=== PATIENT | male | born 2000 | race American Indian/Alaskan Native ===

== ENCOUNTER 2019-09-16 01:33 | Inpatient (IN) | payer SELFPAY ==
[2019-09-16] MEDS ORDERED: LORazepam 2 MG/ML VIAL IV ONE ×2 (02:11→04:51)
[2019-09-16 02:14] LABS: Basophils % (Auto) 0.9 % (0.0-1.8); Eosinophils % (Auto) 0.3 % (0.0-4.3); Hematocrit 47.8 % (35.5-45.6); Hemoglobin 15.8 gm/dl (11.8-15.2); Lymphocytes # (Auto) 2.4 K/mm3 (1.2-5.4); Lymphocytes % (Auto) 43.4 % (13.4-35.0); Mean Corpuscular HGB Conc 33 % (32-34); Mean Corpuscular Volume 87 fl (84-94); Monocytes # (Auto) 0.4 K/mm3 (0.0-0.8); Monocytes % (Auto) 6.8 % (0.0-7.3); Platelet Count 303 K/mm3 (140-440); Red Blood Count 5.48 M/mm3 (3.65-5.03); Red Cell Distribution Width 15.3 % (13.2-15.2)
[2019-09-16] MEDS ORDERED: LORazepam 2 MG/ML VIAL ONE ×3 (02:14→08:08)
--- NOTE | 2019-09-16 02:16 | Emergency Department Report ---
History of Present Illness - General Chief Complaint: Overdose Stated Complaint: OVERDOSE Time Seen by Provider: 09/16/19 01:43 Source: EMS Mode of arrival: Stretcher Limitations: Altered Mental Status - History of Present Illness Initial Comments: Patient is 19 years old male, unknown past medical history. Patient brought to the emergency room via EMS for evaluation of Benadryl overdose. Patient girlfriend informed EMS that patient last time was seen normal was 10:30 PM last night. She stated that she woke up and found him agitated with altered mental status. Upon arrival to the ER, patient is agitated with obvious hallucination. Patient had a heart rate of 172, showing sinus tachycardia on EKG. Poison control immediately consulted who recommended observation for 6-8 hours. For further information please refer to the nurse notes. Patient given 2 mg of Ativan for agitation. -: Last night Intent: unwilling to say How Overdose Was Discovered: family/friend present Treatments Prior to Arrival: none - Related Data Home Medications Medication Instructions Recorded Confirmed Last Taken No Known Home Medications [No 09/16/19 09/16/19 Unknown Reported Home Medications] Allergies Allergy/AdvReac Type Severity Reaction Status Date / Time No Known Allergies Allergy Unverified 09/16/19 02:50 ED Review of Systems ROS: Stated complaint: OVERDOSE Other details as noted in HPI Comment: Unobtainable due to pts medical conditions ED Past Medical Hx - Social History Smoking Status: Unknown if ever smoked Substance Use Type: Alcohol, Other - Medications Home Medications: Home Medications Medication Instructions Recorded Confirmed Last Taken Type No Known Home Medications [No 09/16/19 09/16/19 Unknown History Reported Home Medications] ED Physical Exam - General Limitations: Altered Mental Status General appearance: alert, anxious, other (agitated) - Head Head exam: Present: atraumatic, normocephalic, normal inspection - Eye Eye exam: Present: normal appearance, PERRL - ENT ENT exam: Present: mucous membranes dry - Neck Neck exam: Present: normal inspection, full ROM. Absent: tenderness, meningismus, lymphadenopathy, thyromegaly - Respiratory Respiratory exam: Present: normal lung sounds bilaterally - Cardiovascular Cardiovascular Exam: Present: tachycardia - GI/Abdominal GI/Abdominal exam: Present: soft, normal bowel sounds. Absent: distended, tenderness, guarding, rebound, rigid, mass, bruit, pulsatile mass, hernia - Extremities Exam Extremities exam: Present: normal inspection, full ROM, normal capillary refill. Absent: tenderness, pedal edema, joint swelling, calf tenderness - Back Exam Back exam: Present: normal inspection, full ROM. Absent: CVA tenderness (R), CVA tenderness (L), muscle spasm, paraspinal tenderness, vertebral tenderness - Neurological Exam Neurological exam: Present: alert, altered, CN II-XII intact, reflexes normal. Absent: motor sensory deficit - Psychiatric Psychiatric exam: Present: anxious - Skin Skin exam: Present: warm, intact, normal color ED Course Vital Signs 09/16/19 09/16/19 09/16/19 01:45 01:46 02:00 Temperature 97.9 F Pulse Rate 171 H 175 H 164 H Respiratory 28 H 26 H 18 Rate Blood Pressure 171/94 171/94 140/91 Blood Pressure [Left] O2 Sat by Pulse 100 100 99 Oximetry 09/16/19 09/16/19 09/16/19 02:15 02:30 02:45 Temperature Pulse Rate 161 H 139 H 148 H Respiratory 18 24 26 H Rate Blood Pressure 143/89 160/103 146/92 Blood Pressure [Left] O2 Sat by Pulse 99 100 100 Oximetry 09/16/19 09/16/19 09/16/19 03:00 03:15 03:30 Temperature Pulse Rate 140 H 164 H 133 H Respiratory 22 15 21 Rate Blood Pressure 154/102 153/93 134/97 Blood Pressure [Left] O2 Sat by Pulse 100 99 99 Oximetry 09/16/19 09/16/19 09/16/19 03:45 04:00 04:15 Temperature Pulse Rate 163 H 167 H 169 H Respiratory 24 23 25 H Rate Blood Pressure 135/84 145/79 150/70 Blood Pressure [Left] O2 Sat by Pulse 100 100 99 Oximetry 09/16/19 09/16/19 09/16/19 04:31 04:45 05:00 Temperature Pulse Rate 167 H 157 H 138 H Respiratory 20 18 20 Rate Blood Pressure 149/86 149/86 155/93 Blood Pressure [Left] O2 Sat by Pulse 98 99 99 Oximetry 09/16/19 09/16/19 09/16/19 05:15 05:31 05:45 Temperature Pulse Rate 124 H Respiratory 29 H 16 16 Rate Blood Pressure 157/123 158/109 161/101 Blood Pressure [Left] O2 Sat by Pulse 100 100 100 Oximetry 09/16/19 09/16/19 09/16/19 06:01 06:15 06:31 Temperature Pulse Rate 128 H 167 H Respiratory 20 21 36 H Rate Blood Pressure 156/96 159/97 159/97 Blood Pressure [Left] O2 Sat by Pulse 100 100 Oximetry 09/16/19 09/16/19 09/16/19 06:45 07:00 07:11 Temperature 97.6 F Pulse Rate 132 H 133 H 139 H Respiratory 15 29 H 29 H Rate Blood Pressure 151/100 154/103 154/103 Blood Pressure [Left] O2 Sat by Pulse 99 99 100 Oximetry 09/16/19 09/16/19 09/16/19 07:21 07:25 07:30 Temperature Pulse Rate 136 H 140 H 166 H Respiratory 20 20 28 H Rate Blood Pressure 154/103 154/103 Blood Pressure 154/103 [Left] O2 Sat by Pulse 100 99 95 Oximetry - Reevaluation(s) Reevaluation #1: 09/16/19 02:42 Patient evaluated by me several times. Patient still agitated but symptoms improving with heart rate coming down to 150. Patient girlfriend at bedside and she added that patient had similar episode 4 months ago and was treated at home. He stated that she does not know how much she took but she stated that they usually take Benadryl at night with alcohol. ED Medical Decision Making - Lab Data Result diagrams: 09/16/19 02:04 09/16/19 10:23 - EKG Data -: EKG Interpreted by Me EKG shows normal: sinus rhythm Rate: tachycardia - Medical Decision Making Patient is 19 years old male, unknown past medical history. Patient brought to the emergency room via EMS for evaluation of Benadryl overdose. Patient gi rlfriend informed EMS that patient last time was seen normal was 10:30 PM last night. She stated that she woke up and found him agitated with altered mental status. Upon arrival to the ER, patient is agitated with obvious hallucination. Patient had a heart rate of 172, showing sinus tachycardia on EKG. Poison control immediately consulted who recommended observation for 6-8 hours. For further information please refer to the nurse notes. Patient given 2 mg of Ativan for agitation. Patient potassium is 3.2, patient given potassium chloride IV. Patient also getting serial EKG. I discussed the patient with Dr. Sandoval, he accepted the patient to be admitted to the ICU for further management. Critical Care Time: Yes Critical care time in (mins) excluding proc time.: 30 Critical care attestation.: If time is entered above; I have spent that time in minutes in the direct care of this critically ill patient, excluding procedure time. ED Disposition Clinical Impression: Drug overdose, Altered mental status, Agitation, Sinus tachycardia Disposition: 09 OP ADMIT IP TO THIS HOSP Is pt being admited?: Yes Condition: Stable
[2019-09-16 02:29] LABS: Alanine Aminotransferase 20 units/L (7-56); Albumin 5.1 g/dL (3.9-5); BUN/Creatinine Ratio 12; Blood Urea Nitrogen 13 mg/dL (9-20); Calcium 8.9 mg/dL (8.4-10.2); Hemolysis Index 8
[2019-09-16 02:55] LABS: Alanine Aminotransferase 20 units/L (7-56); Albumin 4.9 g/dL (3.9-5)
[2019-09-16 02:56] LABS: Bilirubin,Direct < 0.2 mg/dL (0-0.2)
[2019-09-16] MEDS: POTASSIUM CHLORIDE 10 MEQ 10 MEQ/100 ML BAG IV SCH ×2 (02:59→03:50)
[2019-09-16 03:27] LABS: Bilirubin,Urine NEG (Negative); Blood,Urine NEG (Negative); Color,Urine Straw (Yellow); Protein,Urine <15 mg/dL mg/dL (Negative); Urobilinogen,Urine < 2.0 mg/dL (<2.0); WBC,Urine < 1.0 /HPF (0.0-6.0)
[2019-09-16 03:46] LABS: Amphetamine Screen,Urine PRESUMPTIVE NEGATIVE; Benzodiazepines Screen,Urine PRESUMPTIVE NEGATIVE; Cannabinoid Screen,Urine PRESUMPTIVE NEGATIVE; Cocaine Screen,Urine PRESUMPTIVE NEGATIVE; Methadone Screen,Urine PRESUMPTIVE NEGATIVE; Opiate Screen,Urine PRESUMPTIVE NEGATIVE
[2019-09-16] MEDS ORDERED: SODIUM CHLORIDE 0.9% 1000 ML 1,000 ML ONE (04:48)
[2019-09-16] MEDS ORDERED: SODIUM CHLORIDE 0.9% 1000 ML 1,000 ML IV ONE (04:51)
[2019-09-16] MEDS: SODIUM CHLORIDE 0.9% 1000 ML 1,000 ML IV SCH ×2 (06:42→15:42)
--- NOTE | 2019-09-16 07:47 | History and Physical Report ---
History of Present Illness Date of examination: 09/16/19 Date of admission: 09/16/19 04:45 Chief complaint: Altered level of comsciousness/agitation History of present illness: Patient is 19 years old male, unknown past medical history. Patient brought to the emergency room via EMS for evaluation of Benadryl overdose. Patient girlfriend informed EMS that patient last time was seen normal was 10:30 PM last night. She stated that she woke up and found him agitated with altered mental status. Upon arrival to the ER, patient is agitated with obvious hallucination. Patient had a heart rate of 172, showing sinus tachycardia on EKG. Poison control immediately consulted who recommended observation for 6-8 hours. For further information please refer to the nurse notes. Patient given 2 mg of Ativan for agitation. Past History Past Medical History: No medical history Past Surgical History: No surgical history Social history: other (unknown) Family history: no significant family history Medications and Allergies Allergies Allergy/AdvReac Type Severity Reaction Status Date / Time No Known Allergies Allergy Unverified 09/16/19 02:50 Home Medications Medication Instructions Recorded Confirmed Last Taken Type No Known Home Medications [No 09/16/19 09/16/19 Unknown History Reported Home Medications] Active Meds: Active Medications Sodium Chloride (Nacl 0.9% 1000 Ml) 1,000 mls @ 125 mls/hr IV DIRECT [facility] Last Admin: 09/16/19 06:42 Dose: 125 mls/hr Documented by: Review of Systems ROS unobtainable: due to mental status Exam - Constitutional Vitals: Temp Pulse Resp BP Pulse Ox 97.6 F 140 H 20 154/103 99 09/16/19 06:45 09/16/19 07:25 09/16/19 07:25 09/16/19 07:25 09/16/19 07:25 General appearance: Present: severe distress, cachectic, other (t achycardia,confused and agitated) - EENT Eyes: Present: PERRL, EOM intact - Neck Neck: Present: supple, normal ROM - Respiratory Respiratory effort: normal Respiratory: bilateral: diminished, negative: rales, rhonchi, wheezing - Cardiovascular Rhythm: regular Heart Sounds: Present: S1 & S2 (tachycardia) - Extremities Extremities: no ischemia, No edema - Abdominal General gastrointestinal: Present: soft, non-tender, non-distended, normal bowel sounds - Integumentary Integumentary: Present: clear, warm - Musculoskeletal Musculoskeletal: strength equal bilaterally - Psychiatric Psychiatric: agitated, other (confused/psychotic) - Neurologic Neurologic: moves all extremities Results - Labs CBC & Chem 7: 09/16/19 02:04 09/16/19 10:23 Labs: Abnormal lab results 09/16/19 09/16/19 09/16/19 Range/Units 01:51 02:04 02:04 RBC 5.48 H (3.65-5.03) M/mm3 Hgb 15.8 H (11.8-15.2) gm/dl Hct 47.8 H (35.5-45.6) % RDW 15.3 H (13.2-15.2) % Lymph % (Auto) 43.4 H (13.4-35.0) % Potassium 3.2 L (3.6-5.0) mmol/L Carbon Dioxide 17 L (22-30) mmol/L Glucose 213 H (75-100) mg/dL POC Glucose 211 H (70-105) Albumin 5.1 H (3.9-5) g/dL Salicylates (2.8-20.0) mg/dL Acetaminophen (10.0-30.0) ug/mL Plasma/Serum Alcohol (0-0.07) % 09/16/19 09/16/19 09/16/19 Range/Units 02:04 02:04 02:18 RBC (3.65-5.03) M/mm3 Hgb (11.8-15.2) gm/dl Hct (35.5-45.6) % RDW (13.2-15.2) % Lymph % (Auto) (13.4-35.0) % Potassium (3.6-5.0) mmol/L Carbon Dioxide (22-30) mmol/L Glucose (75-100) mg/dL POC Glucose (70-105) Albumin (3.9-5) g/dL Salicylates < 0.3 L (2.8-20.0) mg/dL Acetaminophen < 5.0 L (10.0-30.0) ug/mL Plasma/Serum Alcohol 0.16 H (0-0.07) % Assessment and Plan --Drug Overdose:? benadryl/alcohol ?Intentional overdose , poison control adv to observe 8 hrs to maintain calcium more than 9 Potassium more than 4 Magnesium more than 2 Monitor EKG --EKG; nonspecific ST changes Check 1 set of cardiac enzymes Cardiology consult --Possible suicidal attempt; Suicidal watch ,1013 status Psych consult --Toxic metabolic encephalopathy; Treat the underlying cause, supportive care --Metabolic acidosis; Aggressive IV hydration Sodium bicarbonate if needed --Sinus tachycardia: Sedation IV/po metoprolol --Alcohol intoxication; --Alcohol withdrawal symptoms; initiate CIWA protocol --DVT prophylaxis:Lovenox --Restrain for safety Monitor closely and adjust management as needed Critical care consult, psych consult Plan of care is reviewed with the patient's nurse No family available Critical care time 50 minutes Disposition; follow psych, follow cardiology eval and recom Discharge when medically stable ,
[2019-09-16] MEDS ORDERED: HALOPERIDOL LACTATE 5 MG/1 ML INJ IM PRN (08:07)
[2019-09-16] MEDS: LORazepam 2 MG/ML VIAL IV PRN ×11 (08:08→21:56)
[2019-09-16] MEDS: HALOPERIDOL LACTATE 5 MG/1 ML INJ IV PRN ×2 (08:10→11:41)
[2019-09-16] MEDS: LORazepam 2 MG/ML VIAL IV ONE ×2 (08:15→08:25)
[2019-09-16] MEDS ORDERED: LORazepam 2 MG/ML VIAL IV PRN (08:23)
[2019-09-16] MEDS: HALOPERIDOL LACTATE 5 MG/1 ML INJ ONE ×2 (08:24→08:41)
[2019-09-16] MEDS ORDERED: HALOPERIDOL LACTATE 5 MG/1 ML INJ IV PRN (09:00)
[2019-09-16] MEDS: FAMOTIDINE 20 MG/2 ML INJ IV SCH ×2 (09:54→21:17)
[2019-09-16] MEDS: METOPROLOL TARTRATE 25 MG TAB PO SCH ×2 (09:55→21:17)
[2019-09-16] MEDS ORDERED: PANTOPRAZOLE 40 MG INJ IV SCH (10:00)
[2019-09-16 11:04] LABS: BUN/Creatinine Ratio 14; Blood Urea Nitrogen 10 mg/dL (9-20); Calcium 8.3 mg/dL (8.4-10.2); Hemolysis Index 17
--- NOTE | 2019-09-16 11:39 | Event Note ---
Date: 09/16/19 Patient actually admitted at 10:30 PM on last night but consult placed to me this am. Patient with benadryl and ETOH overdose. Agitated. Currently on CIWA. Will continue to monitor. Unable to obtain history from patient at this time.
--- NOTE | 2019-09-16 13:56 | Consultation ---
History of Present Illness - Reason for Consult Consult date: 09/16/19 Reason for consult: Management of Mental Health - Chief Complaint Chief complaint: Altered level of comsciousness/agitation - History of Present Psychiatric Illness HPI Mr. Lawrence is a 19y/o male patient. Upon observation the patient was lying in bed with 4 point restraints. He was attempting to raise up. The patient was somnolent and unable to provide any information. Per the nurse the patient was said to have overdosed on benadryl and ETOH, stating he was confused, deliruis, hallucinating, agitated, and combative upon admission. PAST PSYCHIATRIC HISTORY: Diagnoses: Unable to obtain due to patient's somnolence and confusion Suicide attempts or Self-harm behavior: Unable to obtain Prior psychiatric hospitalizations: Unable to obtain Substance Abuse history: Unable to obtain. Previous psychiatric medications tried: Outpatient treatment: PAST MEDICAL HISTORY: Unable to obtain from patient due to somnolence Family Psychiatric History None reported or documented SOCIAL HISTORY Social history cannot be reliably obtained from the patient due to her confusion and somnolence. REVIEW OF SYSTEMS ROS cannot be reliably obtained from the patient due to her confusion and somnolence. Diagnosis: Substance abuse induced psychosis RECOMMENDATIONS Continue CIAL protocol Risks, benefits and alternatives of medications discussed with the patient's brother, questions answered and consent obtained. PSYCHOTHERAPY: Supportive psychotherapy provided DELIRIUM PRECAUTIONS: Please re-orient patient frequently, keep lights on during the day, and minimize benzodiazepines and opiates as these medications could worsen patient's confusion. 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 DISPOSITION: TBD LEGAL STATUS: Involuntary Will continue to follow Please contact with any questions or concerns Thank you for this consult Medications and Allergies Allergies Allergy/AdvReac Type Severity Reaction Status Date / Time No Known Allergies Allergy Unverified 09/16/19 02:50 Home Medications Medication Instructions Recorded Confirmed Last Taken Type No Known Home Medications [No 09/16/19 09/16/19 Unknown History Reported Home Medications] Active Meds: Active Medications Enoxaparin Sodium (Enoxaparin) 40 mg SUB-Q QDAY@2200 [facility] Famotidine (Pepcid) 20 mg IV BID [facility] Last Admin: 09/16/19 09:54 Dose: 20 mg Documented by: Sodium Chloride (Nacl 0.9% 1000 Ml) 1,000 mls @ 125 mls/hr IV DIRECT [facility] Last Admin: 09/16/19 06:42 Dose: 125 mls/hr Documented by: Magnesium Sulfate (Magnesium Sulfate 4gm/100ml) 4 gm in 100 mls @ 25 mls/hr IV ONCE ONE Stop: 09/16/19 17:59 Lorazepam (Ativan) 2 mg IV Q1H PRN PRN Reason: CIWA-Ar 8-15 Last Admin: 09/16/19 13:46 Dose: 2 mg Documented by: Lorazepam (Ativan) 4 mg IV Q1H PRN PRN Reason: CIWA-Ar 16-25 Lorazepam (Ativan) 4 mg IV Q15MIN PRN PRN Reason: CIWA-Ar >25 Metoprolol Tartrate (Metoprolol) 12.5 mg PO BID [facility] Last Admin: 09/16/19 09:55 Dose: Not Given Documented by: Mental Status Exam - Vital signs Last Vital Signs Temp 98.1 F 09/16/19 11:52 Pulse 110 H 09/16/19 13:51 Resp 24 09/16/19 13:51 BP 136/88 09/16/19 13:51 Pulse Ox 100 09/16/19 13:51 Results Result Diagrams: 09/16/19 02:04 09/16/19 10:23 Abnormal lab results 09/16/19 09/16/19 09/16/19 Range/Units 01:51 02:04 02:04 RBC 5.48 H (3.65-5.03) M/mm3 Hgb 15.8 H (11.8-15.2) gm/dl Hct 47.8 H (35.5-45.6) % RDW 15.3 H (13.2-15.2) % Lymph % (Auto) 43.4 H (13.4-35.0) % Potassium 3.2 L (3.6-5.0) mmol/L Carbon Dioxide 17 L (22-30) mmol/L Creatinine (0.8-1.5) mg/dL Glucose 213 H (75-100) mg/dL POC Glucose 211 H (70-105) Calcium (8.4-10.2) mg/dL Magnesium (1.7-2.3) mg/dL Albumin 5.1 H (3.9-5) g/dL Salicylates (2.8-20.0) mg/dL Acetaminophen (10.0-30.0) ug/mL Plasma/Serum Alcohol (0-0.07) % 09/16/19 09/16/19 09/16/19 Range/Units 02:04 02:04 02:18 RBC (3.65-5.03) M/mm3 Hgb (11.8-15.2) gm/dl Hct (35.5-45.6) % RDW (13.2-15.2) % Lymph % (Auto) (13.4-35.0) % Potassium (3.6-5.0) mmol/L Carbon Dioxide (22-30) mmol/L Creatinine (0.8-1.5) mg/dL Glucose (75-100) mg/dL POC Glucose (70-105) Calcium (8.4-10.2) mg/dL Magnesium (1.7-2.3) mg/dL Albumin (3.9-5) g/dL Salicylates < 0.3 L (2.8-20.0) mg/dL Acetaminophen < 5.0 L (10.0-30.0) ug/mL Plasma/Serum Alcohol 0.16 H (0-0.07) % 09/16/19 Range/Units 10:23 RBC (3.65-5.03) M/mm3 Hgb (11.8-15.2) gm/dl Hct (35.5-45.6) % RDW (13.2-15.2) % Lymph % (Auto) (13.4-35.0) % Potassium (3.6-5.0) mmol/L Carbon Dioxide 17 L (22-30) mmol/L Creatinine 0.7 L (0.8-1.5) mg/dL Glucose (75-100) mg/dL POC Glucose (70-105) Calcium 8.3 L (8.4-10.2) mg/dL Magnesium 1.60 L (1.7-2.3) mg/dL Albumin (3.9-5) g/dL Salicylates (2.8-20.0) mg/dL Acetaminophen (10.0-30.0) ug/mL Plasma/Serum Alcohol (0-0.07) % All other labs normal.
[2019-09-16] MEDS ORDERED: MAGNESIUM SULFATE 4 GM/100 ML BAG IV ONE (14:00)
--- NOTE | 2019-09-16 15:30 | Event Note ---
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
[2019-09-16 16:49] LABS: Creatine Kinase MB 3.8 ng/mL (0.0-4.0)
[2019-09-16] MEDS ORDERED: ENOXAPARIN 40 MG/0.4 ML INJ SUB-Q SCH (22:00)
[2019-09-17] MEDS: LORazepam 2 MG/ML VIAL IV PRN ×2 (00:08→00:34)
[2019-09-17 07:34] LABS: Alanine Aminotransferase 22 units/L (7-56); Albumin 3.9 g/dL (3.9-5); BUN/Creatinine Ratio 11; Blood Urea Nitrogen 9 mg/dL (9-20); Calcium 8.6 mg/dL (8.4-10.2); Hemolysis Index 5
[2019-09-17] MEDS: SODIUM CHLORIDE 0.9% 1000 ML 1,000 ML IV SCH (08:40)
[2019-09-17] MEDS: METOPROLOL TARTRATE 25 MG TAB PO SCH (09:15)
[2019-09-17 09:34] LABS: Basophils % (Auto) 0.3 % (0.0-1.8); Eosinophils % (Auto) 0.2 % (0.0-4.3); Hematocrit 42.3 % (35.5-45.6); Hemoglobin 13.9 gm/dl (11.8-15.2); Lymphocytes % (Auto) 24.9 % (13.4-35.0); Mean Corpuscular HGB Conc 33 % (32-34); Mean Corpuscular Volume 87 fl (84-94); Monocytes # (Auto) 0.9 K/mm3 (0.0-0.8); Monocytes % (Auto) 11.6 % (0.0-7.3); Platelet Count 257 K/mm3 (140-440); Red Blood Count 4.86 M/mm3 (3.65-5.03)
[2019-09-17] MEDS ORDERED: FAMOTIDINE 20 MG TAB PO SCH (10:00)
--- NOTE | 2019-09-17 10:46 | XRay Report ---
CHEST 1 VIEW INDICATION: palpitations/routine COMPARISON: None FINDINGS: Support devices: None Heart: Normal Lungs/Pleura: No acute pulmonary or pleural findings. IMPRESSION: 1. No acute disease. Signer Name: Blair Nino MD Signed: 09/17/2019 10:41 AM Workstation Name: [id number]
--- NOTE | 2019-09-17 12:10 | Progress Note ---
Subjective - Reason for Consult Consult date: 09/17/19 Reason for consult: Mental health management - Chief Complaint Chief complaint: PROGRESS NOTE: I interviewed the patient this morning. Medical records reviewed and patient's progress was discussed with unit staff. Nursing staff reports that patient is alert and oriented, presently calm and appropriate. In my interview with the patient this today, he was lying in bed. Awake. A/O x 4. Calm, cooperative and pleasant. He is making good eye contact. Mr. Crowder says he "feels a lot better." He denies SI/HI of any kind. "I wouldn't lie to you. I'm not crazy. If something was wrong I would say it." He also denies hallucinations or delusions of any kind. He says he has no psychiatric history and this happened because he drank. He says he feels safe going home and has a "loving girlfriend who's family is also loving and supportive of him." He says "I made one mistake but I got a loving family." Mr. Thomson says he's overall happy. He says he sleeps well and has a good appetite. Review of Symptoms: Constitutional: Negative for weight loss ENT: Negative for stridor Respiratory: Negative for cough or hemoptysis All other systems reviewed and are negative MSE Appearance: Wearing appropriate clothing. Good hygiene Behavior: calm, Pleasant and cooperative. Good eye contact Mood: "overall happy" Affect: Congruent with stated mood Thought Process: Goal directed Speech: Normal rate. Thought Content Harmfulness Denies SI/HI Hallucinations: patient denies Delusions: none elicited Consciousness: alert. Cognition/Memory: normal. Insight/Judgment: Limited. RECOMMENDATIONS Will rescind 1013 DISPOSITION: Per primary team, no indication for acute inpatient psychiatric hospitalization at this time. The patient can be discharged once medically cleared. LEGAL STATUS: Voluntary FOLLOW-UP: Will sign off. The patient agreed on the treatment plan, understood the risk, benefit, alternative treatment, potential consequence of no treatment, and gave informed consent. Thank you for this consult. Please contact us if any further questions. Mental Status Exam - Vital signs Last Vital Signs Temp 98.7 F 09/17/19 08:00 Pulse 62 09/17/19 11:00 Resp 17 09/17/19 11:00 BP 120/74 09/17/19 11:00 Pulse Ox 98 09/17/19 11:00
--- NOTE | 2019-09-17 13:45 | Consultation ---
History of Present Illness Consult date: 09/17/19 Consult reason: other (Abnormal ECG) History of present illness: This is a 19-year old male who is admitted with drug overdose. He was initially admitted to the CCU but has been downgraded to the medical floor. A cardiac consultation has been requested for abnormal ECG. On review, his presenting ECG is sinus tachycardia, otherwise benign. Patient denies chest pain, unusual shortness of breath and palpitations. Telemetry strips today, shows a stable sinus rhythm, rate ranging in the 60s. Past History Past Medical History: No medical history Past Surgical History: No surgical history Social history: other (unknown) Family history: no significant family history Medications and Allergies Allergies Allergy/AdvReac Type Severity Reaction Status Date / Time No Known Allergies Allergy Unverified 09/16/19 02:50 Home Medications Medication Instructions Recorded Confirmed Last Taken Type No Known Home Medications [No 09/16/19 09/16/19 Unknown History Reported Home Medications] Active Meds: Active Medications Enoxaparin Sodium (Enoxaparin) 40 mg SUB-Q QDAY@2200 [facility] Last Admin: 09/16/19 21:17 Dose: 40 mg Documented by: Famotidine (Pepcid) 20 mg PO BID [facility] Last Admin: 09/17/19 09:15 Dose: 20 mg Documented by: Sodium Chloride (Nacl 0.9% 1000 Ml) 1,000 mls @ 125 mls/hr IV DIRECT [facility] Last Admin: 09/17/19 08:40 Dose: 125 mls/hr Documented by: Lorazepam (Ativan) 2 mg IV Q1H PRN PRN Reason: CIWA-Ar 8-15 Last Admin: 09/16/19 21:56 Dose: 2 mg Documented by: Lorazepam (Ativan) 4 mg IV Q1H PRN PRN Reason: CIWA-Ar 16-25 Last Admin: 09/17/19 00:08 Dose: 4 mg Documented by: Lorazepam (Ativan) 4 mg IV Q15MIN PRN PRN Reason: CIWA-Ar >25 Last Admin: 09/17/19 00:34 Dose: 4 mg Documented by: Metoprolol Tartrate (Metoprolol) 12.5 mg PO BID [facility] Last Admin: 09/17/19 09:15 Dose: 12.5 mg Documented by: Physical Examination Vital Signs Pulse Resp BP Pulse Ox 171 H 28 H 171/94 100 09/16/19 01:45 09/16/19 01:45 09/16/19 01:45 09/16/19 01:45 General appearance: no acute distress HEENT: Positive: PERRL Neck: Positive: neck supple Cardiac: Positive: Reg Rate and Rhythm Lungs: Positive: Normal Breath Sounds Neuro: Positive: Grossly Intact Extremities: Absent: edema Results 09/17/19 05:17 09/17/19 05:17 Cardiac Enzymes 09/16/19 09/17/19 Range/Units 16:17 05:17 AST 71 H (5-40) units/L CK-MB (CK-2) 3.8 (0.0-4.0) ng/mL CBC 09/17/19 Range/Units 05:17 WBC 7.9 (4.5-11.0) K/mm3 RBC 4.86 (3.65-5.03) M/mm3 Hgb 13.9 (11.8-15.2) gm/dl Hct 42.3 (35.5-45.6) % Plt Count 257 (140-440) K/mm3 Lymph # 2.0 (1.2-5.4) K/mm3 [place] # 0.9 H (0.0-0.8) K/mm3 Eos # 0.0 (0.0-0.4) K/mm3 Baso # 0.0 (0.0-0.1) K/mm3 Comprehensive Metabolic Panel 09/17/19 Range/Units 05:17 Sodium 139 (137-145) mmol/L Potassium 4.3 (3.6-5.0) mmol/L Chloride 106.3 (98-107) mmol/L Carbon Dioxide 19 L (22-30) mmol/L BUN 9 (9-20) mg/dL Creatinine 0.8 (0.8-1.5) mg/dL Glucose 86 (75-100) mg/dL Calcium 8.6 (8.4-10.2) mg/dL AST 71 H (5-40) units/L ALT 22 (7-56) units/L Alkaline Phosphatase 56 (35-129) units/L Total Protein 6.0 L (6.3-8.2) g/dL Albumin 3.9 (3.9-5) g/dL Assessment and Plan - Patient Problems (1) Sinus tachycardia Current Visit: Yes Status: Acute (2) Drug overdose Current Visit: Yes Status: Acute
[2019-09-17 14:39] VITALS: BP 135/88
--- NOTE | 2019-09-17 16:53 | Discharge Summary ---
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 Follow-up on current diagnosis of Drug Overdose. No overnight events reported to me. Patient denies any chest pain, shortness breath, nausea/vomiting or severe headaches. Imaging, nursing note, chart, labs and old chart reviewed. Discussed with patient. Gen: WDWN, NAD, Awake, Alert, Orientated HEENT: NCAT, EOMI, PERRL, OP Clear Neck: supple, no adenopathy, no thyromegaly, no JVD CVS/Heart: RRR, normal S1S2, pulses present bilaterally Chest/Lungs: CTA B, Symmetrical chest expansion, good air entry bilaterally GI/Abdomen: soft, NTND, good bowel sounds, no guarding or rebound /Bladder: no suprapubic tenderness, no CVA or paraspinal tenderness Extermity/Skin: no c/c/e, no obvious rash MSK: FROM x 4 Neuro: CN 2-12 grossly intact, no new focal deficits Psych: calm Patient is 19 years old man with unknown past medical history. Patient brought to the emergency room via EMS for evaluation of Benadryl overdose. Patient girlfriend informed EMS that patient last time was seen normal was 10:30 PM last night. She stated that she woke up and found him agitated with altered mental status. Upon arrival to the ER, patient is agitated with obvious hallucination. Patient had a heart rate of 172, showing sinus tachycardia on EKG. Poison control immediately consulted who recommended observation for 6-8 hours. For further information please refer to the nurse notes. Patient given 2 mg of Ativan for agitation. After 1013 was recinded, he left AMA. Discharge Diagnoses: --Drug Overdose with benadryl/alcohol patient states unIntentional overdose , poison control center used counseling done --Acute Toxic metabolic encephalopathy; Treat the underlying cause, supportive care --EKG; nonspecific ST changes Check 1 set of cardiac enzymes Cardiology consult --Rhabdomyolysis worsening, increase IVFs but patient left AMA --Possible suicidal attempt; Suicidal watch ,1013 status Psych consulted and rescinded 1013 --Metabolic acidosis; Aggressive IV hydration Sodium bicarbonate if needed --Sinus tachycardia: Sedation IV/po metoprolol --Alcohol intoxication; --Alcohol withdrawal symptoms; initiate CIWA protocol --DVT prophylaxis:Lovenox Disposition: d/c once Rhabdomyolyosis improves but patient left AMA Critical care time 32 minutes Disposition: [id number] LEFT AGAINST MED ADVICE Time spent for discharge: 34 minutes Core Measure Documentation - Palliative Care Palliative Care/ Comfort Measures: Not Applicable - Core Measures Any of the following diagnoses?: none - VTE Discharge Requirements Deep Vein Thrombosis/Pulmonary Embolism Present on Admission: No Has pt received <5 days of overlap therapy or INR<2.0: No Anticoagulant overlap therapy prescribed at discharge: No Contraindication No Overlap Therapy order at DC: Not Indicated Exam - Constitutional Vitals: Temp Pulse Resp BP Pulse Ox 98.4 F 75 20 135/88 100 09/17/19 12:56 09/17/19 12:56 09/17/19 12:56 09/17/19 12:56 09/17/19 12:56 Plan Follow up with: PRIMARY MD MANOLO [Primary Care Provider] - 3-5 Days
== END 2019-09-17 14:06 | disposition left against medical advice (07) | DRG 917 ==
LOC: ED 01:33 → CC1 04:45 → 3A 09-17 12:04
PROVIDERS: ADMIT Emergency Medicine; ATTEND Internal Medicine
DX: T45.0X1A Poisoning by antiallergic and antiemetic drugs, accidental (unintentional), initial encounter (principal); G93.41 Metabolic encephalopathy; R64 Cachexia; E87.2 Acidosis; M62.82 Rhabdomyolysis; Z68.1 Body mass index [BMI] 19.9 or less, adult; Y92.89 Other specified places as the place of occurrence of the external cause; R00.0 Tachycardia, unspecified; F10.129 Alcohol abuse with intoxication, unspecified; E83.42 Hypomagnesemia; Z53.29 Procedure and treatment not carried out because of patient's decision for other reasons; T51.91XA Toxic effect of unspecified alcohol, accidental (unintentional), initial encounter
CPT/HCPCS: 36415; 71045; 80048; 80053; 80076; 80307; 80320; 81001; 82550; 82553; 82962; 83735; 84100; 84484; 85025; 93005; 93010; G0378; G0480; J1630; J1650; J2060; J3475; J3480; J7030